=== PATIENT | female | born 1995 | race Hispanic/Latino ===

== ENCOUNTER 2017-10-20 23:03 | Outpatient (CLI) | payer BC, MEDICAID ==
[2017-10-21 00:51] LABS: Hematocrit 37.8 % (30.3-42.9); Hemoglobin 13.2 gm/dl (10.1-14.3); Mean Corpuscular HGB Conc 35 % (30-34); Mean Corpuscular Hemoglobin 34 pg (28-32); Mean Corpuscular Volume 97 fl (79-97); Platelet Count 169 K/mm3 (140-440); Red Blood Count 3.91 M/mm3 (3.65-5.03); Red Cell Distribution Width 12.9 % (13.2-15.2)
[2017-10-21 00:56] LABS: Bilirubin,Urine NEG (Negative); Blood,Urine NEG (Negative); Color,Urine Straw (Yellow); Mucus,Urine FEW /HPF; Protein,Urine <15 mg/dL mg/dL (Negative); Urobilinogen,Urine < 2.0 mg/dL (<2.0); WBC,Urine < 1.0 /HPF (0.0-6.0)
[2017-10-21 01:47] LABS: Alanine Aminotransferase 18 units/L (7-56)
[2017-10-21 02:07] VITALS: BP 128/81
== END 2017-10-21 02:14 | disposition home or self-care (01) ==
LOC: TRG 23:03
PROVIDERS: ATTEND Obstetrics & Gynecology
DX: O13.3 Gestational [pregnancy-induced] hypertension without significant proteinuria, third trimester (principal); Z3A.38 38 weeks gestation of pregnancy
CPT/HCPCS: 36415; 81001; 82565; 83615; 84450; 84460; 84550; 85027

== ENCOUNTER 2017-11-07 08:53 | Inpatient (IN) | payer BC, MEDICAID ==
--- NOTE | 2017-11-07 09:57 | History and Physical Report ---
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 of genital herpes: no Partner hx. of genital herpes: no Rash, Viral, or Febrile illness since last LMP? no Varicella/Chicken Pox Status: Previous Disease TB Risk: no Genetic History Congenital Heart Defect: Mom: no Dad: no Ced Disease: Mom: no Dad: no Thalassemia Mom: no Dad: no Neural Tube Defect Mom: no Dad: no Down's Syndrome Mom: no Dad: no Bari-Sachs Mom: no Dad: no Sickle Cell Disease/Trait Mom: no Dad: no Hemophilia Mom: no Dad: no Muscular Dystrophy Mom: no Dad: no Cystic Fibrosis Mom: no Dad: no [place] Chorea Mom: no Dad: no Mental Retardation Mom: no Dad: no Fragile X Mom: no Dad: no Other Genetic/Chromosomal Disorder Mom: no Dad: unknown Comments: uncle with DS Child w/other defect Mom: no Dad: no Comments/Counseling: pt declines any genetic testing Enviromental Exposures Xray Exposure: no Medication, drug, or alcohol use since LMP: no Chemical/Other Exposure: no Exposure to Cat Liter: no Hx of Parvovirus (Fifth Disease): no Occupational Exposure to Children: none Active Medications (reviewed today): PNV () Current Allergies (reviewed today): No known allergies Past History Past Medical History: other (see HPI) Past Surgical History: other (see HPI) MANAGEMENT LEAD History: other (see HPI) Family/Genetic History: other (see HPI) - Obstetrical History Expected Date of Delivery: 10/30/17 Actual Gestation: 41 Week(s) 1 Day(s) : 1 Para: 0 Number of Pregnancies: 0 Spontaneous Abortions: 0 Induced : 0 Number of Living Children: 0 Medications and Allergies Allergies Allergy/AdvReac Type Severity Reaction Status Date / Time No Known Allergies Allergy Unverified 10/21/17 01:17 Active Meds: Active Medications Butorphanol Tartrate (Stadol) 2 mg IV Q2H PRN PRN Reason: Pain , Severe (7-10) Ephedrine Sulfate (Ephedrine Sulfate) 10 mg IV Q2M PRN PRN Reason: Hypotension Fentanyl (Sublimaze) 100 mcg IV Q2H PRN PRN Reason: Labor Pain Lactated Ringer's (Lactated Ringers) 1,000 mls @ 125 mls/hr IV DIRECT YONAS Oxytocin/Sodium Chloride (Pitocin/Ns 20 Unit/1000ml Drip) 20 units in 1,000 mls @ 125 mls/hr IV DIRECT YONAS Oxytocin/Sodium Chloride (Pitocin/Ns 30 Unit/500ml) 30 units in 500 mls @ 4 mls /hr IV TITR YONAS; Protocol Lidocaine (Xylocaine 2%) 20 ml INFILTRATI ONCE ONE Stop: 11/07/17 09:50 Mineral Oil (Mineral Oil) 30 ml PO QHS PRN PRN Reason: Constipation Ondansetron HCl (Zofran) 4 mg IV Q8H PRN PRN Reason: Nausea And Vomiting Terbutaline Sulfate (Brethine) 0.25 mg SUB-Q ONCE PRN PRN Reason: Hyperstimulation/Hypertonicity Terbutaline Sulfate (Brethine) 0.25 mg IVP ONCE PRN PRN Reason: Hyperstimulation/Hypertonicity Review of Systems All systems: negative - Vital Signs Vital signs: Vital Signs Pulse BP 89 132/85 11/07/17 09:16 11/07/17 09:16 Temp Pulse Resp BP Pulse Ox 95 H 132/85 97 11/07/17 09:23 11/07/17 09:16 11/07/17 09:23 - Physical Exam Breasts: Positive: normal Cardiovascular: Regular rate Lungs: Positive: Clear to auscultation, Normal air movement Abdomen: Positive: normal appearance, soft Genitourinary (Female): Positive: normal external genitalia, normal perenium Vulva: both: normal Vagina: Positive: normal moisture Uterus: Positive: normal size, normal contour Anus/Rectum: Positive: normal perianal skin Deep Tendon Reflex Grade: Normal +2 - Obstetrical FHR: auscultation normal Uterine Contraction Monitor Mode: External Cervical Dilatation: 3 (per admitting RN) Results All other labs normal. Assessment and Plan 22y/o admitted for IOL @ 41+1 weeks, GBS neg, RH neg, Normal care. Admission orders in EMR. - Patient Problems (1) 41 weeks gestation of Current Visit: Yes Status: Acute (2) Prolonged Current Visit: Yes Status: Acute (3) Rh negative status during Current Visit: Yes Status: Acute Qualifiers: Trimester: third trimester Qualified Code(s): O09.893 - Supervision of other high risk pregnancies, third trimester; Z67.91 - Unspecified blood type, Rh negative
[2017-11-07] MEDS ORDERED: SUBLIMAZE IV PRN (10:00)
[2017-11-07] MEDS ORDERED: ePHEDrine SULFATE IV PRN (10:00)
[2017-11-07] MEDS ORDERED: BRETHINE SUB-Q PRN (10:00)
[2017-11-07] MEDS ORDERED: LACTATED RINGERS 1,000 ML IV SCH (10:00)
[2017-11-07] MEDS ORDERED: BRETHINE IVP PRN (10:00)
[2017-11-07] MEDS ORDERED: STADOL IV PRN (10:00)
[2017-11-07] MEDS ORDERED: PITOCin/NS 20 UNIT/1000ML DRIP 20 UNITS/1,000 ML BAG IV SCH ×2 (10:00→23:26)
[2017-11-07 10:20] LABS: Hematocrit 37.3 % (30.3-42.9); Hemoglobin 13.2 gm/dl (10.1-14.3); Red Blood Count 3.9 M/mm3 (3.65-5.03); Red Cell Distribution Width 12.7 % (13.2-15.2)
[2017-11-07] MEDS: PITOCin/NS 30 UNIT/500ML 30 UNITS/500 ML BAG IV SCH ×2 (10:27→11:06)
[2017-11-07] MEDS ORDERED: ZOFRAN IV PRN (10:30)
[2017-11-07] MEDS ORDERED: XYLOCAINE 2% INFILTRATI NR (10:30)
[2017-11-07] MEDS ORDERED: MINERAL OIL PO PRN (10:30)
[2017-11-07 11:56] LABS: Mean Platelet Volume 9.5 fl (6-12)
--- NOTE | 2017-11-07 12:51 | Progress Note ---
Assessment and Plan patient doing well with ctx, does not plan on getting an epidural at this time. Good change since admission on pitocin, patient desires to be out of bed. Plan made with patient and family to AROM and d/c pitocin for a few hours to see if she labors more naturally. If cat 1, patient may ambulate in room per hospital policy. Clear fluid noted. Anticipate . Will continue to monitor b/ p's - PIH labs ordered. Pt is asymptomatic. - Patient Problems (1) 41 weeks gestation of Current Visit: Yes Status: Acute (2) Prolonged Current Visit: Yes Status: Acute (3) Rh negative status during Current Visit: Yes Status: Acute Qualifiers: Trimester: third trimester Qualified Code(s): O09.893 - Supervision of other high risk pregnancies, third trimester; Z67.91 - Unspecified blood type, Rh negative Subjective - Subjective Date of service: 11/07/17 Principal diagnosis: IUP @ 41+1, IOL postdates Interval history: EDC Calculations by LMP: 10/30/2017 Past History : 1 Para: 0 Past Medical History: Asthma Past Surgical History: Appendectomy 2007 Past Medical History 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 of genital herpes: no Partner hx. of genital herpes: no Rash, Viral, or Febrile illness since last LMP? no Varicella/Chicken Pox Status: Previous Disease TB Risk: no Genetic History Congenital Heart Defect: Mom: no Dad: no Ced Disease: Mom: no Dad: no Thalassemia Mom: no Dad: no Neural Tube Defect Mom: no Dad: no Down's Syndrome Mom: no Dad: no Bari-Sachs Mom: no Dad: no Sickle Cell Disease/Trait Mom: no Dad: no Hemophilia Mom: no Dad: no Muscular Dystrophy Mom: no Dad: no Cystic Fibrosis Mom: no Dad: no Juice Chorea Mom: no Dad: no Mental Retardation Mom: no Dad: no Fragile X Mom: no Dad: no Other Genetic/Chromosomal Disorder Mom: no Dad: unknown Comments: uncle with DS Child w/other defect Mom: no Dad: no Comments/Counseling: pt declines any genetic testing Enviromental Exposures Xray Exposure: no Medication, drug, or alcohol use since LMP: no Chemical/Other Exposure: no Exposure to Cat Liter: no Hx of Parvovirus (Fifth Disease): no Occupational Exposure to Children: none Active Medications (reviewed today): PNV () Current Allergies (reviewed today): No known allergies Patient reports: vaginal bleeding, movement normal, contractions Objective - Vital Signs Vital Signs: Vital Signs - 12hr 11/07/17 11/07/17 11/07/17 09:16 09:18 09:23 Temperature Pulse Rate 89 94 H 95 H Respiratory Rate Blood Pressure 132/85 O2 Sat by Pulse 98 97 Oximetry 11/07/17 11/07/17 11/07/17 10:14 10:38 11:08 Temperature 97.3 F L Pulse Rate 79 83 Respiratory 20 Rate Blood Pressure 145/86 134/82 O2 Sat by Pulse Oximetry 11/07/17 11/07/17 11/07/17 11:39 11:59 12:08 Temperature Pulse Rate 102 H 78 88 Respiratory Rate Blood Pressure 137/90 139/90 134/79 O2 Sat by Pulse Oximetry 11/07/17 12:37 Temperature Pulse Rate 92 H Respiratory Rate Blood Pressure 135/93 O2 Sat by Pulse Oximetry - Exam Breasts: normal Cardiovascular: Regular rate Lungs: Clear to auscultation, Normal air movement Abdomen: Present: normal appearance, soft Vulva: both: normal Uterus: Present: normal FHR: auscultation normal, category 1 Uterine Contraction Monitor Mode: External Cervical Dilatation: 5 Cervical Effacement Percentage: 90 station: -1 Uterine Contraction Frequency (min): 1-3 Uterine Contraction Duration: 60 Uterine Contraction Pattern: Regular Uterine Tone Measurement Phase: Contraction Uterine Contraction Intensity: Moderate Extremities: normal Deep Tendon Reflex Grade: Normal +2 - Labs Labs: Abnormal Labs 11/07/17 09:45 WBC 11.3 H MCH 34 H MCHC 35 H RDW 12.7 L Laboratory Results - last 24 hr 11/07/17 11/07/17 11/07/17 09:45 09:45 09:45 WBC 11.3 H RBC 3.90 Hgb 13.2 Hct 37.3 MCV 96 MCH 34 H MCHC 35 H RDW 12.7 L Plt Count 162 RPR Nonreactive Blood Type A NEGATIVE Antibody Screen Negative
[2017-11-07 14:12] LABS: Bilirubin,Urine NEG (Negative); Blood,Urine MOD (Negative); Color,Urine Straw (Yellow); Mucus,Urine FEW /HPF; Protein,Urine <15 mg/dL mg/dL (Negative); Urobilinogen,Urine < 2.0 mg/dL (<2.0)
[2017-11-07 14:40] LABS: Alanine Aminotransferase 14 units/L (7-56)
--- NOTE | 2017-11-07 17:05 | Progress Note ---
Assessment and Plan patient continues to contract and make good cervical change. Pt denies SMART, visual changes or epigastric pain. Pt would like to use the shower for pain management. Will allow off monitor after reactive fht. - Patient Problems (1) 41 weeks gestation of Current Visit: Yes Status: Acute (2) Prolonged Current Visit: Yes Status: Acute (3) Rh negative status during Current Visit: Yes Status: Acute Qualifiers: Trimester: third trimester Qualified Code(s): O09.893 - Supervision of other high risk pregnancies, third trimester; Z67.91 - Unspecified blood type, Rh negative Subjective - Subjective Date of service: 11/07/17 Principal diagnosis: IUP @ 41+1, IOL postdates Interval history: EDC Calculations by LMP: 10/30/2017 Past History : 1 Para: 0 Past Medical History: Asthma Past Surgical History: Appendectomy 2007 Past Medical History 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 of genital herpes: no Partner hx. of genital herpes: no Rash, Viral, or Febrile illness since last LMP? no Varicella/Chicken Pox Status: Previous Disease TB Risk: no Genetic History Congenital Heart Defect: Mom: no Dad: no Ced Disease: Mom: no Dad: no Thalassemia Mom: no Dad: no Neural Tube Defect Mom: no Dad: no Down's Syndrome Mom: no Dad: no Bari-Sachs Mom: no Dad: no Sickle Cell Disease/Trait Mom: no Dad: no Hemophilia Mom: no Dad: no Muscular Dystrophy Mom: no Dad: no Cystic Fibrosis Mom: no Dad: no [place] Chorea Mom: no Dad: no Mental Retardation Mom: no Dad: no Fragile X Mom: no Dad: no Other Genetic/Chromosomal Disorder Mom: no Dad: unknown Comments: uncle with DS Child w/other defect Mom: no Dad: no Comments/Counseling: pt declines any genetic testing Enviromental Exposures Xray Exposure: no Medication, drug, or alcohol use since LMP: no Chemical/Other Exposure: no Exposure to Cat Liter: no Hx of Parvovirus (Fifth Disease): no Occupational Exposure to Children: none Active Medications (reviewed today): PNV () Current Allergies (reviewed today): No known allergies Patient reports: vaginal bleeding, movement normal, contractions Objective - Vital Signs Vital Signs: Vital Signs - 12hr 11/07/17 11/07/17 11/07/17 09:16 09:18 09:23 Temperature Pulse Rate 89 94 H 95 H Respiratory Rate Blood Pressure 132/85 O2 Sat by Pulse 98 97 Oximetry 11/07/17 11/07/17 11/07/17 10:14 10:38 11:08 Temperature 97.3 F L Pulse Rate 79 83 Respiratory 20 Rate Blood Pressure 145/86 134/82 O2 Sat by Pulse Oximetry 11/07/17 11/07/17 11/07/17 11:39 11:59 12:08 Temperature Pulse Rate 102 H 78 88 Respiratory Rate Blood Pressure 137/90 139/90 134/79 O2 Sat by Pulse Oximetry 11/07/17 11/07/17 11/07/17 12:37 13:08 15:06 Temperature Pulse Rate 92 H 85 90 Respiratory Rate Blood Pressure 135/93 134/71 152/88 O2 Sat by Pulse Oximetry 11/07/17 11/07/17 16:51 16:53 Temperature 98.6 F Pulse Rate 93 H Respiratory 18 Rate Blood Pressure 132/92 O2 Sat by Pulse Oximetry - Exam Breasts: normal Cardiovascular: Regular rate Lungs: Clear to auscultation, Normal air movement Abdomen: Present: normal appearance, soft Vulva: both: normal Uterus: Present: normal FHR: auscultation normal, category 1 Uterine Contraction Monitor Mode: External Cervical Dilatation: 7.5 Cervical Effacement Percentage: 90 station: 0 Uterine Contraction Frequency (min): 2-3 Uterine Contraction Duration: 60-70 Uterine Contraction Pattern: Regular Uterine Tone Measurement Phase: Contraction Uterine Contraction Intensity: Strong/Firm Extremities: normal Deep Tendon Reflex Grade: Normal +2 - Labs Labs: Abnormal Labs 11/07/17 11/07/17 09:45 13:46 WBC 11.3 H MCH 34 H MCHC 35 H RDW 12.7 L Creatinine 0.6 L Lactate Dehydrogenase 247 H Laboratory Results - last 24 hr 11/07/17 11/07/17 11/07/17 09:45 09:45 09:45 WBC 11.3 H RBC 3.90 Hgb 13.2 Hct 37.3 MCV 96 MCH 34 H MCHC 35 H RDW 12.7 L Plt Count 162 Creatinine Estimated GFR Uric Acid AST ALT Lactate Dehydrogenase Urine Color Urine Turbidity Urine pH Ur Specific [place] Urine Protein Urine Glucose (UA) Urine Ketones Urine Blood Urine Nitrite Urine Bilirubin Urine Urobilinogen Ur Leukocyte Esterase Urine WBC (Auto) Urine RBC (Auto) U Epithel Cells (Auto) Urine Mucus RPR Nonreactive Blood Type A NEGATIVE Antibody Screen Negative 11/07/17 11/07/17 13:46 13:50 WBC RBC Hgb Hct MCV MCH MCHC RDW Plt Count Creatinine 0.6 L Estimated GFR > 60 Uric Acid 6.0 AST 40 ALT 14 Lactate Dehydrogenase 247 H Urine Color Straw Urine Turbidity Clear Urine pH 6.0 Ur Specific [place] 1.009 Urine Protein <15 mg/dl Urine Glucose (UA) Neg Urine Ketones Neg Urine Blood Mod Urine Nitrite Neg Urine Bilirubin Neg Urine Urobilinogen < 2.0 Ur Leukocyte Esterase Neg Urine WBC (Auto) 2.0 Urine RBC (Auto) 9.0 U Epithel Cells (Auto) 1.0 Urine Mucus Few RPR Blood Type Antibody Screen
[2017-11-07] MEDS ORDERED: BENADRYL IV ONE (17:48)
[2017-11-07] MEDS ORDERED: BENADRYL ONE (17:50)
--- NOTE | 2017-11-07 20:11 | Procedure Note ---
OB Delivery Note - Delivery Date of Delivery: 11/07/17 ( Female) Panel Wirer: MARICRUZ ARAGON Estimated blood loss: 100cc - Vaginal Delivery presentation: vertex Delivery position: OA Intrapartum events: other(please specify) (gestational HTN) Delivery induction: oxytocin Delivery augmentation: rupture of membranes Delivery monitor: external FHT, external uterine Route of delivery: Delivery placenta: spontaneous Delivery cord: 3 umbilical vessels, other (short cord) Episiotomy: none Delivery laceration: 1st degree Delivery repair: other (Hemostatic - not repaired) Anesthesia: none Delivery comments: female del over intact perineum, placed skin to skin on mother's abdomen. 3 vessel cord clamped and cut. cord blood collected. Placenta del intact and complete. small 1st vag lac hemostatic - discussed with patient and left unrepaired. ELB 100, apgars 9/9, infant's weight 7#11. Mother and remain LDR stable. - Infant A at 1 minute: 9 at 5 minutes: 9 Gender: Female (7#11)
[2017-11-07] MEDS ORDERED: ANUCORT-HC PR PRN (23:26)
[2017-11-07] MEDS ORDERED: DERMOPLAST TP PRN (23:26)
[2017-11-07] MEDS ORDERED: SODIUM CHLORIDE FLUSH SYRINGE 10 ML IV NR (23:26)
[2017-11-07] MEDS ORDERED: TYLENOL PO PRN (23:26)
[2017-11-07] MEDS ORDERED: TUCKS PAD TP PRN (23:26)
[2017-11-07] MEDS ORDERED: PHENERGAN PO PRN (23:26)
[2017-11-07] MEDS ORDERED: LANSINOH TP PRN (23:26)
[2017-11-07] MEDS ORDERED: BENADRYL PO PRN (23:26)
[2017-11-07] MEDS ORDERED: DULCOLAX PR PRN (23:26)
[2017-11-07] MEDS ORDERED: MILK OF MAGNESIA PO PRN (23:26)
[2017-11-08] MEDS ORDERED: BOOSTRIX IM ONE (06:00)
[2017-11-08] MEDS: MOTRIN PO SCH ×5 (06:05→21:30)
--- NOTE | 2017-11-08 08:35 | Progress Note ---
Assessment and Plan Continue post pathway, ? d/c home tomorrow. Patient voiced understanding - Patient Problems (1) (normal spontaneous vaginal delivery) Current Visit: Yes Status: Acute (2) Rh negative status during Current Visit: Yes Status: Acute Qualifiers: Trimester: third trimester Qualified Code(s): O09.893 - Supervision of other high risk pregnancies, third trimester; Z67.91 - Unspecified blood type, Rh negative Subjective - Subjective Date of service: 11/08/17 Principal diagnosis: PPD#1, ; girl, 1stD vag lac Interval history: Resting in bed w/ baby to (L) breast, mod lochia, no complaints Patient reports: appetite normal, voiding normally, pain well controlled, no dizzy ambulation Objective - Vital Signs Latest vital signs: Vital Signs Temp Pulse Resp BP Pulse Ox 11/07/17 23:44 104 H 115/72 97 11/07/17 21:16 76 124/65 11/07/17 21:01 95 H 136/68 11/07/17 20:46 94 H 134/67 11/07/17 20:31 93 H 126/61 11/07/17 20:16 95 H 138/61 11/07/17 20:01 99 H 137/78 11/07/17 20:00 97.8 F 20 11/07/17 19:00 98.1 F 24 11/07/17 18:30 97 H 137/91 11/07/17 16:53 93 H 132/92 11/07/17 16:51 98.6 F 18 11/07/17 15:06 90 152/88 11/07/17 13:08 85 134/71 11/07/17 12:37 92 H 135/93 11/07/17 12:08 88 134/79 11/07/17 11:59 78 139/90 11/07/17 11:39 102 H 137/90 11/07/17 11:08 83 134/82 11/07/17 10:38 79 145/86 11/07/17 10:14 97.3 F L 20 11/07/17 09:23 95 H 97 11/07/17 09:18 94 H 98 11/07/17 09:16 89 132/85 Intake and Output 11/07/17 11/08/17 11/08/17 22:59 06:59 14:59 Intake Total 240 Output Total 300 Balance -60 Intake: Oral 240 Output: Urine 300 Void 300 Other: Total, Intake Amount 240 Total, Output Amount 300 Estimated Blood Loss 100 - Exam Breasts: Present: normal ((R), baby breast feeding on (L)) Lungs: Present: Normal air movement Abdomen: Present: normal appearance Uterus: Present: fundal height below umbilicus. Absent: tenderness Extremities: Present: normal - Labs Labs: Abnormal lab results 11/07/17 11/07/17 Range/Units 09:45 13:46 WBC 11.3 H (4.5-11.0) K/mm3 MCH 34 H (28-32) pg MCHC 35 H (30-34) % RDW 12.7 L (13.2-15.2) % Creatinine 0.6 L (0.7-1.2) mg/dL Lactate Dehydrogenase 247 H (91-180) units/L
[2017-11-08] MEDS ORDERED: PRENATAL VITAMIN PO SCH (10:00)
[2017-11-08] MEDS: COLACE PO SCH ×2 (10:29→21:30)
[2017-11-08 12:19] LABS: Hematocrit 34.9 % (30.3-42.9); Hemoglobin 11.6 gm/dl (10.1-14.3)
[2017-11-09] MEDS: MOTRIN PO SCH
[2017-11-09 09:03] VITALS: BP 112/78
--- NOTE | 2017-11-09 09:03 | Discharge Summary ---
Providers - Providers Date of Admission: 11/07/17 08:53 Date of discharge: 11/09/17 Attending physician: DAMON TREJO 11/07/17 23:26 Consult to General Neurologist [CONS] Routine Reason For Exam: assistance with , SNS Primary care physician: CLAIRE MORGAN Hospitalization Condition: Good Procedures: ; girl Hospital course: She was admitted for IOL, had , girl w/ 1stD vaginal laceration, no repair required, PP course was unremarkable, mod lochia, h/h 11.2/34.9, no complaints, she desires to go home today Disposition: DC-01 TO HOME OR SELFCARE - Discharge Diagnoses (1) (normal spontaneous vaginal delivery) Status: Acute (2) Rh negative status during Status: Acute Qualifiers: Trimester: third trimester Qualified Code(s): O09.893 - Supervision of other high risk pregnancies, third trimester; Z67.91 - Unspecified blood type, Rh negative Comment: Rhogam given yesterday Core Measure Documentation - Palliative Care Palliative Care/ Comfort Measures: Not Applicable - Core Measures Any of the following diagnoses?: none Exam - Constitutional Vitals: Temp Pulse Resp BP Pulse Ox 98.7 F 73 18 112/78 98 11/09/17 09:02 11/09/17 09:02 11/09/17 09:02 11/09/17 09:02 11/09/17 07:42 Breasts: no engorgement, soft General appearance: Present: no acute distress - Respiratory Respiratory effort: normal - Extremities Extremities: no ischemia, No edema - Abdominal Female genitourinary: Present: other (FF ~2cm below umbilicus) - Integumentary Integumentary: Present: clear, warm, dry - Psychiatric Psychiatric: appropriate mood/affect Plan Activity: other (no sex [id number], declines contraception) Weight Bearing Status: Full Weight Bearing Diet: regular Wound: open to air, keep clean and dry Special Instructions: no heavy lifting (>25#) Follow up with: MARICRUZ ARAGON CNM [Advanced Practice Nurse] - 6 Weeks
[2017-11-09] MEDS ORDERED: Fluarix Quad 2017-2018(36 MOS+ IM ONE (09:10)
== END 2017-11-09 13:40 | disposition home or self-care (01) | DRG 775 ==
LOC: LD 08:53 → OB 23:12
PROVIDERS: ADMIT Obstetrics & Gynecology; ATTEND Obstetrics & Gynecology
PROC: 10E0XZZ Delivery of Products of Conception, External Approach (ICD-10-PCS; principal; 2017-11-07)
PROC: 3E033VJ Introduction of Other Hormone into Peripheral Vein, Percutaneous Approach (ICD-10-PCS; 2017-11-07)
PROC: 3E0234Z Introduction of Serum, Toxoid and Vaccine into Muscle, Percutaneous Approach (ICD-10-PCS; 2017-11-07)
PROC: 30233S1 Transfusion of Nonautologous Globulin into Peripheral Vein, Percutaneous Approach (ICD-10-PCS; 2017-11-08)
DX: O36.0930 Maternal care for other rhesus isoimmunization, third trimester, not applicable or unspecified (principal); O63.9 Long labor, unspecified; Z37.0 Single live birth; Z90.49 Acquired absence of other specified parts of digestive tract; O99.52 Diseases of the respiratory system complicating childbirth; Z3A.41 41 weeks gestation of pregnancy; J45.909 Unspecified asthma, uncomplicated; O70.0 First degree perineal laceration during delivery; O13.4 Gestational [pregnancy-induced] hypertension without significant proteinuria, complicating childbirth; O48.0 Post-term pregnancy; Z23 Encounter for immunization
CPT/HCPCS: 36415; 81001; 82565; 83615; 84450; 84460; 84550; 85014; 85018; 85027; 85461; 86592; 86850; 86900; 86901; 90686; J1200; J2590; J2790; J7120